=== PATIENT | male | born 1990 | race Hispanic/Latino ===

== ENCOUNTER 2021-09-10 19:05 | Emergency (ER) | payer SELFPAY ==
[~2021-09-10] VITALS: Ht 177.8 cm; Wt 113.4 kg
[2021-09-10] MEDS ORDERED: MEDROL4 MG PO (20:14)
[2021-09-10] MEDS ORDERED: BENADRYL25 M1 PO (20:14)
== END 2021-09-10 20:35 | disposition home or self-care (01) ==
LOC: ER 19:15
DX: R20.2 Paresthesia of skin (principal); R60.9 Edema, unspecified
CPT/HCPCS: 99282